=== PATIENT | male | born 1930 | race Caucasian/White ===

== ENCOUNTER 2016-04-23 13:42 | Emergency (ER) | payer MEDICARE ==
[2016-04-23 14:56] LABS: ABSOLUTE NEUTROPHIL COUNT 5.6 K/mm3 (1.8-7.7); BASO % 0.6 % (0.2-1.0); EOS # 0.2 (0.0-0.5); EOS % 2.2 % (0.9-2.9); HEMATOCRIT 45.2 % (32.0-52.0); HEMOGLOBIN 15.4 gm/l (14.0-18.0); IMM NEUT% 0.4 % (0-1); LYMPH # 0.9 (1.0-4.8); LYMPH % 12.6 % (15-45); MEAN CORPUSCULAR HEMOGLOBIN 30.3 pg (27.0-31.0); MEAN CORPUSCULAR HGB CONC 34.1 g/dl (33.0-37.0); MEAN PLATELET VOLUME 9.3 fl (7.4-10.4); MONO # 0.4 (0.0-0.8); NEUT % 78.2 % (43-75); PLATELET COUNT 179 K/mm3 (130-400); RED CELL DISTRIBUTION WIDTH 13.8 % (11.5-14.5)
[2016-04-23 15:19] LABS: INR 1.05; PARTIAL THROMBOPLASTIN TIME 27.3 SECONDS (24.5-33.0)
== END 2016-04-23 16:14 | disposition home or self-care (01) ==
LOC: ED 13:42
DX: S30.0XXA Contusion of lower back and pelvis, initial encounter (principal); X58.XXXA Exposure to other specified factors, initial encounter; Y92.9 Unspecified place or not applicable

== ENCOUNTER 2016-05-26 05:39 | Emergency (ER) | payer MEDICARE | END 2016-05-26 06:59 | disposition home or self-care (01) | LOC: ED 05:39 | DX: R21 Rash and other nonspecific skin eruption (principal) ==